=== PATIENT | male | born 1995 | race Two or more races ===

== ENCOUNTER 2018-11-05 03:51 | Emergency (ER) | payer SELFPAY ==
[~2018-11-05] VITALS: Ht 165.1 cm; Wt 81.6 kg
[2018-11-05] MEDS ORDERED: METOCLOPRAMIDE HCL 10 MG/2 ML VIAL. IV ONE (04:00)
[2018-11-05] MEDS ORDERED: KETOROLAC 15 MG/ML VIAL. IV ONE (04:00)
[2018-11-05] MEDS ORDERED: IV NORMAL SALINE 1000ML BAG 1,000 ML IV ONE (04:00)
[2018-11-05] MEDS ORDERED: KETOROLAC 30 MG/ML VIAL. IV ONE (04:00)
--- NOTE | 2018-11-05 04:05 | PHYS DOC ---
Past Medical History Past Medical History: No Pertinent History Past Surgical History: Appendectomy Additional Information: Nonsmoker Alcohol Use: None Drug Use: Marijuana Adult General Chief Complaint Chief Complaint: FLANK PAIN HPI HPI 23-year-old male presents with report of sudden right flank pain with associated nausea and diaphoresis on waking at 0200 this morning. Patient does report urin ating some blood. Denies history of known kidney stones. Denies fever or chills. Reports took 2 Tylenol prior to arrival. Denies known trauma. Review of Systems Review of Systems Constitutional: Denies fever or chills Eyes: Denies redness or eye pain HENT: Denies nasal congestion or sore throat Respiratory: Denies cough or shortness of breath Cardiovascular: Denies chest pain or palpitations GI: Reports abdominal pain and nausea : Denies dysuria; reports hematuria Musculoskeletal: Reports right flank pain; and eyes joint pain Integument: Denies rash or skin lesions; reports diaphoresis Neurologic: Denies headache, focal weakness or sensory changes Complete systems were reviewed and found to be within normal limits, except as documented in this note. Current Medications Current Medications Current Medications Medications (Trade) Dose Ordered Sig/Erlinda Start Time Stop Time Status Last Admin Dose Admin Ketorolac Tromethamine (Toradol 15mg Vial) 15 mg 1X ONCE 11/05/18 04:00 11/05/18 04:18 DC Ketorolac Tromethamine (Toradol 30mg Vial) 15 mg 1X ONCE 11/05/18 04:00 11/05/18 04:18 DC 11/05/18 04:09 15 MG Metoclopramide HCl (Reglan Vial) 10 mg 1X ONCE 11/05/18 04:00 11/05/18 04:18 DC 11/05/18 04:09 10 MG Potassium Chloride (Klor-Con) 40 meq 1X ONCE 11/05/18 05:00 11/05/18 05:01 DC 11/05/18 05:58 40 MEQ Sodium Chloride 1,000 ml @ 1,000 mls/hr 1X ONCE 11/05/18 04:00 11/05/18 04:59 DC 11/05/18 04:09 1,000 MLS/HR Allergies Allergies Allergies Coded Allergies Type Severity Reaction Last Updated Verified No Known Drug Allergies 11/05/18 No Physical Exam Physical Exam Constitutional: Well developed, well nourished, in pain, uncomfortable, appears ill HENT: Normocephalic, atraumatic, oropharynx moist Eyes: Conjunctiva normal, no discharge Neck: Normal range of motion, no tenderness, supple Cardiovascular: Heart rate normal, regular rhythm Lungs & Thorax: Bilateral breath sounds clear to auscultation, no wheezing Abdomen: Soft, no tenderness Skin: Warm, dry, no erythema, no rash Back: No tenderness, right CVA tenderness on palpation Extremities: No tenderness, ROM intact, no edema Neurologic: Alert and oriented X 3, no focal deficits noted Psychologic: Affect normal, judgement normal Current Patient Data Vital Signs Vital Signs Date Time Temp Pulse Resp B/P (MAP) Pulse Ox O2 Delivery O2 Flow Rate FiO2 11/05/18 05:45 75 16 111/55 (73) 99 Room Air 11/05/18 03:55 98.3 98.3 Lab Values Laboratory Tests Test 11/05/18 03:55 11/05/18 04:03 Urine Collection Type Unknown Urine Color Yellow Urine Clarity Cloudy Urine pH 7.0 Urine Specific [place] 1.020 Urine Protein Negative mg/dL (NEG-TRACE) Urine Glucose (UA) Negative mg/dL (NEG) Urine Ketones (Stick) Trace mg/dL (NEG) Urine Blood Large (NEG) Urine Nitrite Negative (NEG) Urine Bilirubin Negative (NEG) Urine Urobilinogen Dipstick 0.2 mg/dL (0.2 mg/dL) Urine Leukocyte Esterase Negative (NEG) Urine RBC Tntc /HPF (0-2) Urine WBC 5-10 /HPF (0-4) Urine Squamous Epithelial Cells Few /LPF Urine Bacteria Moderate /HPF (0-FEW) White Blood Count 11.1 x10^3/uL (4.0-11.0) H Red Blood Count 5.55 x10^6/uL (4.30-5.70) Hemoglobin 16.2 g/dL (13.0-17.5) Hematocrit 46.7 % (39.0-53.0) Mean Corpuscular Volume 84 fL (79-100) Mean Corpuscular Hemoglobin 29 pg (25-35) Mean Corpuscular Hemoglobin Concent 35 g/dL (31-37) Red Cell Distribution Width 13.2 % (11.5-14.5) Platelet Count 316 x10^3/uL (140-400) Neutrophils (%) (Auto) 54 % (31-73) Lymphocytes (%) (Auto) 38 % (24-48) Monocytes (%) (Auto) 6 % (0-9) Eosinophils (%) (Auto) 1 % (0-3) Basophils (%) (Auto) 1 % (0-3) Neutrophils # (Auto) 5.9 x10^3uL (1.8-7.7) Lymphocytes # (Auto) 4.2 x10^3/uL (1.0-4.8) Monocytes # (Auto) 0.7 x10^3/uL (0.0-1.1) Eosinophils # (Auto) 0.1 x10^3/uL (0.0-0.7) Basophils # (Auto) 0.1 x10^3/uL (0.0-0.2) Sodium Level 141 mmol/L (136-145) Potassium Level 2.9 mmol/L (3.5-5.1) *L Chloride Level 102 mmol/L (98-107) Carbon Dioxide Level 23 mmol/L (21-32) Anion Gap 16 (6-14) H Blood Urea Nitrogen 17 mg/dL (8-26) Creatinine 1.1 mg/dL (0.7-1.3) Estimated GFR (Cockcroft-Gault) 82.2 BUN/Creatinine Ratio 15 (6-20) Glucose Level 136 mg/dL (70-99) H Calcium Level 9.5 mg/dL (8.5-10.1) Magnesium Level 1.9 mg/dL (1.8-2.4) Total Bilirubin 0.3 mg/dL (0.2-1.0) Aspartate Amino Transferase (AST) 18 U/L (15-37) Alanine Aminotransferase (ALT) 38 U/L (16-63) Alkaline Phosphatase 85 U/L (46-116) Total Protein 8.2 g/dL (6.4-8.2) Albumin 4.4 g/dL (3.4-5.0) Albumin/Globulin Ratio 1.2 (1.0-1.7) Lipase 144 U/L (73-393) Laboratory Tests 11/05/18 04:03 Laboratory Tests 11/05/18 04:03 EKG EKG [] Radiology/Procedures Radiology/Procedures PROCEDURE: CT ABDOMEN PELVIS WO CONTRAST CT abdomen and pelvis without contrast: Reason for examination: Flank pain and hematuria. Helical images were obtained through the abdomen and pelvis with no contrast administered. Reconstruction was performed in sagittal and coronal planes. Exposure: One or more of the following individualized dose reduction techniques were utilized for this examination: 1. Automated exposure control 2. Adjustment of the mA and/or kV according to patient size 3. Use of iterative reconstruction technique. The lung bases are clear. The heart size is normal with no pericardial effusion. No abnormality seen at the liver, gallbladder, spleen, adrenal glands or pancreas. The abdominal aorta and inferior vena cava show no acute abnormalities. The left kidney show no renal masses, renal calculi, hydronephrosis or obstructive uropathy. The right kidney shows no renal mass, renal calculus. There does appear to be mild hydronephrosis which appears be due to a 6.8 x 4.7 millimeter calcification just above the level of the ureterovesical junction. The stomach contains a large amount of gastric content but no wall thickening or evidence of obstruction. Small intestinal tract shows no dilatation or wall thickening and no small bowel obstruction is seen. The colon shows no diverticulosis or diverticulitis or colitis. What appears to be the appendix lies in the retrocecal position and is not distended but there are calcifications in the right lower quadrant which may represent granuloma. No inflammatory changes are seen to suggest appendicitis. No abnormality seen at the bladder, prostate gland or seminal vesicles. No acute bony abnormalities are seen. IMPRESSION: Mild right hydronephrosis which appears to be due to a 6.8 x 4.7 mm calculus in the distal right ureter just above the ureterovesical junction. Calcifications in the right lower quadrant adjacent to cecum and appendix without inflammatory changes to suggest appendicitis. These may represent granuloma. Electronically signed by: Rita Sutton MD (11/05/2018 6:00 AM) [facility] Course & Med Decision Making Course & Med Decision Making Pertinent Labs and Imaging studies reviewed. (See chart for details) Patient presents with history of present illness and physical exam consistent for kidney stone. Pain/nausea addressed. IV fluid hydration provided. Labs obtained and posted to chart. UA with significant RBCs. NO infection appreciated. Potassium low. Hypokalemia addressed. CT abdomen/pelvis with signs of 7mm obstructing ureteral calculi. Flomax provided. Patient stable for discharge with outpatient follow-up with PCP/urologist. Urology referral provided. Discussed findings and plan with patient and family, who acknowledge understanding and agreement. Jonnie Disclaimer Dragon Disclaimer This electronic medical record was generated, in whole or in part, using a voice recognition dictation system. Departure Departure Impression: Primary Impression: Kidney stone Additional Impression: Hypokalemia Disposition: HOME, SELF-CARE Condition: STABLE Referrals: SID QUINTERO MD Patient Instructions: Diet for Kidney Stones, Hypokalemia, Kidney Stones, [id number], Potassium Content of Foods Scripts Tamsulosin Hcl (FLOMAX) 0.4 Mg Cap.er.24h 1 CAP PO DAILY, #10 CAP Prov: MICHAEL LAFLEUR DO 11/05/18 Hydrocodone/Apap 5-325 (NORCO 5-325 TABLET) 1 Each Tablet 0.5 TAB PO PRN Q6HRS PRN for PAIN, #10 TAB 0 Refills Prov: MICHAEL LAFLEUR DO 11/05/18 Ondansetron (ONDANSETRON ODT) 4 Mg Tab.rapdis 1 TAB PO PRN Q6-8HRS PRN for NAUSEA, #16 TAB Prov: MICHAEL LAFLEUR DO 11/05/18 Problem Qualifiers MICHAEL LAFLEUR DO Nov 05, 2018 04:05
[2018-11-05 04:12] LABS: BILIRUBIN,URINE NEGATIVE (NEG); CLARITY,URINE CLOUDY; COLOR,URINE YELLOW; NITRITE,URINE NEGATIVE (NEG); PROTEIN,URINE NEGATIVE (NEG-TRACE); UROBILINOGEN,URINE 0.2 mg/dL (0.2 mg/dL)
[2018-11-05 04:15] LABS: BASO # 0.1 x10^3/uL (0.0-0.2); BASO % 1 % (0-3); EOS # 0.1 x10^3/uL (0.0-0.7); EOS % 1 % (0-3); HEMATOCRIT 46.7 % (39.0-53.0); HEMOGLOBIN 16.2 g/dL (13.0-17.5); LYMPH # 4.2 x10^3/uL (1.0-4.8); LYMPH % 38 % (24-48); MEAN CORPUSCULAR HEMOGLOBIN 29 pg (25-35); MEAN CORPUSCULAR HGB CONC 35 g/dL (31-37); MEAN CORPUSCULAR VOLUME 84 fL (79-100); MONO # 0.7 x10^3/uL (0.0-1.1); MONO % 6 % (0-9); NEUT # 5.9 x10^3uL (1.8-7.7); NEUT % 54 % (31-73); PLATELET COUNT 316 x10^3/uL (140-400); RED BLOOD COUNT 5.55 x10^6/uL (4.30-5.70); RED CELL DISTRIBUTION WIDTH 13.2 % (11.5-14.5); WHITE BLOOD COUNT 11.1 x10^3/uL (4.0-11.0)
[2018-11-05 04:31] LABS: ALBUMIN 4.4 g/dL (3.4-5.0); ALBUMIN/GLOBULIN RATIO 1.2 (1.0-1.7); CALCIUM 9.5 mg/dL (8.5-10.1); CREATININE 1.1 mg/dL (0.7-1.3); GFR 82.2; MAGNESIUM 1.9 mg/dL (1.8-2.4); TOTAL BILIRUBIN 0.3 mg/dL (0.2-1.0); TOTAL PROTEIN 8.2 g/dL (6.4-8.2)
[2018-11-05 04:49] LABS: POTASSIUM 2.9 mmol/L (3.5-5.1)
[2018-11-05 04:57] LABS: BACTERIA,URINE MODERATE /HPF (0-FEW); RBC,URINE TNTC /HPF (0-2); SQUAMOUS EPITHELIAL CELL,UR FEW /LPF
[2018-11-05] MEDS ORDERED: POTASSIUM CHLORIDE 20 MEQ TABLET.ER. PO ONE (05:00)
[2018-11-05 05:45] VITALS: BP 111/55
[2018-11-05] MEDS ORDERED: TAMS0.4C97 PO (05:53)
[2018-11-05] MEDS ORDERED: HYDR-3164 PO (05:53)
[2018-11-05] MEDS ORDERED: ONDA4TAB12 PO (05:53)
--- NOTE | 2018-11-05 06:03 | RAD ---
CT abdomen and pelvis without contrast: Reason for examination: Flank pain and hematuria. Helical images were obtained through the abdomen and pelvis with no contrast administered. Reconstruction was performed in sagittal and coronal planes. Exposure: One or more of the following individualized dose reduction techniques were utilized for this examination: 1. Automated exposure control 2. Adjustment of the mA and/or kV according to patient size 3. Use of iterative reconstruction technique. The lung bases are clear. The heart size is normal with no pericardial effusion. No abnormality seen at the liver, gallbladder, spleen, adrenal glands or pancreas. The abdominal aorta and inferior vena cava show no acute abnormalities. The left kidney show no renal masses, renal calculi, hydronephrosis or obstructive uropathy. The right kidney shows no renal mass, renal calculus. There does appear to be mild hydronephrosis which appears be due to a 6.8 x 4.7 millimeter calcification just above the level of the ureterovesical junction. The stomach contains a large amount of gastric content but no wall thickening or evidence of obstruction. Small intestinal tract shows no dilatation or wall thickening and no small bowel obstruction is seen. The colon shows no diverticulosis or diverticulitis or colitis. What appears to be the appendix lies in the retrocecal position and is not distended but there are calcifications in the right lower quadrant which may represent granuloma. No inflammatory changes are seen to suggest appendicitis. No abnormality seen at the bladder, prostate gland or seminal vesicles. No acute bony abnormalities are seen. IMPRESSION: Mild right hydronephrosis which appears to be due to a 6.8 x 4.7 mm calculus in the distal right ureter just above the ureterovesical junction. Calcifications in the right lower quadrant adjacent to cecum and appendix without inflammatory changes to suggest appendicitis. These may represent granuloma. Electronically signed by: Rita Sutton MD (11/05/2018 6:00 AM) [facility]
[2018-11-05] MEDS ORDERED: TAMSULOSIN 0.4 MG CAP.ER.24H. PO ONE ×2 (06:15→06:18)
== END 2018-11-05 06:20 | disposition home or self-care (01) ==
LOC: ER 03:51
DX: N13.2 Hydronephrosis with renal and ureteral calculous obstruction (principal); E87.6 Hypokalemia; R61 Generalized hyperhidrosis; R11.0 Nausea; Z90.89 Acquired absence of other organs
CPT/HCPCS: 36415; 74176; 80053; 81001; 83690; 83735; 85025; 87086; 96374; 96375; 99285; J1885; J2765; J7030